=== PATIENT | male | born 1975 | race Two or more races ===

== ENCOUNTER 2017-09-30 08:54 | Emergency (ER) | payer OTHER ==
[2017-09-30 10:29] LABS: INFLUENZA A PATIENT NEGATIVE (NEGATIVE); OBC FLU VALID
[2017-09-30 10:31] LABS: INFLUENZA B PATIENT POSITIVE (NEGATIVE)
== END 2017-09-30 11:38 | disposition home or self-care (01) ==
LOC: ER 08:54
DX: J10.1 Influenza due to other identified influenza virus with other respiratory manifestations (principal)
CPT/HCPCS: 71045; 87804; 87804-59; 99285-25